=== PATIENT | male | born 1955 | race Caucasian/White ===

== ENCOUNTER 2020-07-03 21:26 | Emergency (ER) | payer MEDICARE ==
[~2020-07-03] VITALS: Ht 160 cm; Wt 62.6 kg
[2020-07-03] MEDS ORDERED: ONDANSETRON HCL INJ 2MG/ML 2ML 2 MG/ML VIAL IV STA (21:35)
[2020-07-03] MEDS ORDERED: KETOROLAC TROMETHAMINE 30 MG/ML VIAL IV STA (21:35)
[2020-07-03] MEDS ORDERED: PANTOPRAZOLE 40 MG 10ML VIAL IV STA (21:35)
[2020-07-03] MEDS ORDERED: SODIUM CHLORIDE 0.9% 1000ML 1,000 ML IV ONE (21:45)
--- NOTE | 2020-07-03 21:57 | Emergency Department Note ---
History of Present Illnes History of Present Illness Chief Complaint: Abdominal Complaints History of Present Illness This is a 64 year old male * 64 Y/O MALE PT AAOX3 PRESENTS TO THE ER VIA EMS FROM HOME C/O N/V ONSET X4 HRS [employer]; REPORTS N/V X1 HR AFTER EATING OYSTERS AND A POBOY SANDWICH; DENIES DIARRHEA OR ABD PAIN; MILD TENDERNESS NOTED TO RUQ ABD ON PALPATION; PT TACHYCARDIC ON ARRIVAL, HR 128 . Arrival Mode: [facility] Staff Nurse Anesthetist Required: No Onset (how long ago): hour(s) (4) Location: ABD Quality: PAIN, NAUSEA,VOMITING Radiation: Reports non-radiation Severity: mild Onset quality: sudden Duration (how long): hour(s) (4) Timing of current episode: constant Progression: unchanged Chronicity: new Context: Denies recent illness, Denies recent surgery Relieving factors: none Exacerbating factors: none Associated symptoms: Reports nausea/vomiting Treatments prior to arrival: none Past Medical/Family History Physician Review I have reviewed the patient's past medical and family history. Any updates have been documented here. Past Medical History Recent Fever: No Clinical Suspicion of Infectio: No New/Unexplained Change in Ment: No Social History Smoking Cessation: Never Smoker Alcohol Use: None Any Illegal Drug Use: No Family History Family history of heart diseas: No Review of Systems Review of Systems Constitutional: Reports no symptoms EENTM: Reports no symptoms Cardiovascular: Reports no symptoms Respiratory: Reports no symptoms Gastrointestinal: Reports as per HPI Genitourinary: Reports no symptoms Musculoskeletal: Reports no symptoms Integumentary: Reports no symptoms Neurological: Reports no symptoms Psychological: Reports no symptoms Endocrine: Reports no symptoms Hematological/Lymphatic: Reports no symptoms Physical Exam Related Data Allergies: Coded Allergies: No Known Allergies (Unverified , 07/03/20) Triage Vital Signs Vital Signs Date Time Temp Pulse Resp B/P (MAP) Pulse Ox O2 Delivery O2 Flow Rate FiO2 07/03/20 21:26 99.4 128 24 124/70 96 Room Air Vital signs reviewed: Yes Physical Exam CONSTITUTIONAL Constitutional: Present well-developed, Present well-nourished; Absent distressed HENT HENT: Present normocephalic, Present atraumatic, Present oropharynx clear/moist, Present nose normal HENT L/R: Present left ext ear normal, Present right ext ear normal EYES Eyes: Reports PERRL, Reports conjunctivae normal NECK Neck: Present ROM normal PULMONARY Pulmonary: Present effort normal, Present breath sounds normal CARDIOVASCULAR Cardiovascular: Present regular rhythm, Present heart sounds normal, Present capillary refill normal, Present tachycardia (128) GASTROINTESTINAL Abdominal: Present soft, Present bowel sounds normal, Present tender (TENDERNESS TO RUQ ON EXAM) GENITOURINARY Genitourinary: Present exam deferred SKIN Skin: Present warm, Present dry MUSCULOSKELETAL Musculoskeletal: Present ROM normal NEUROLOGICAL Neurological: Present alert, Present oriented x 3, Present no gross motor or sensory deficits PSYCHOLOGICAL Psychological: Present mood/affect normal, Present judgement normal Results Laboratory Laboratory Laboratory Tests Test 07/04/20 02:15 07/04/20 00:50 07/03/20 21:45 Urine Color Yellow (YELLOW) Urine Clarity Clear (CLEAR) Urine pH 5 (5 - 7) Urine Specific [place] 1.020 (1.010-1.025) Urine Protein Negative (NEGATIVE) Urine Glucose (UA) Negative (NEGATIVE) Urine Ketones Trace (NEGATIVE) Urine Blood Negative (NEGATIVE) Urine Nitrite Negative (NEGATIVE) Urine Bilirubin Negative (NEGATIVE) Urine Urobilinogen 0.2 mg/dL (0.2 - 1) Urine Leukocyte Esterase Negative (NEGATIVE) Urine RBC 0-5 /HPF (0-5) Urine WBC 6-10 /HPF (0-5) Urine Epithelial Cells Few /LPF (NONE) Urine Bacteria Moderate /HPF (NONE) Urine Mucus Many (RARE) Lactic Acid Level 1.5 mmol/L (0.5-2.0) 2.3 mmol/L (0.5-2.0) White Blood Count 6.60 x10e3/uL (4.8-10.8) Red Blood Count 5.62 x10e6/uL (4.3-5.7) Hemoglobin 15.9 g/dL (14.0-18.0) Hematocrit 48.0 % (38.2-49.6) Mean Corpuscular Volume 85.4 fL (81-99) Mean Corpuscular Hemoglobin 28.3 pg (28-32) Mean Corpuscular Hemoglobin Concent 33.1 g/dL (31-35) Red Cell Distribution Width 14.1 % (11.7-14.4) Platelet Count 193 x10e3/uL (140-360) Neutrophils (%) (Auto) 91.6 % (38.7-80.0) Lymphocytes (%) (Auto) 1.5 % (18.0-39.1) Monocytes (%) (Auto) 6.1 % (4.4-11.3) Eosinophils (%) (Auto) 0.0 % (0.0-6.0) Basophils (%) (Auto) 0.2 % (0.0-1.0) Neutrophils # (Auto) 6.1 (2.1-6.9) Lymphocytes # (Auto) 0.1 (1.0-3.2) Monocytes # (Auto) 0.4 (0.2-0.8) Eosinophils # (Auto) 0.0 (0.0-0.4) Basophils # (Auto) 0.0 (0.0-0.1) Absolute Immature Granulocyte (auto 0.04 x10e3/uL (0-0.1) Sodium Level 141 mmol/L (136-145) Potassium Level 4.2 mmol/L (3.5-5.1) Chloride Level 105 mmol/L (98-107) Carbon Dioxide Level 18 mmol/L (22-29) Anion Gap 22.2 mmol/L (8-16) Blood Urea Nitrogen 15 mg/dL (7-26) Creatinine 0.85 mg/dL (0.72-1.25) Estimat Glomerular Filtration Rate > 60 ML/MIN (60-) BUN/Creatinine Ratio 18 (6-25) Glucose Level 129 mg/dL (74-118) Calcium Level 9.7 mg/dL (8.4-10.2) Total Bilirubin 0.6 mg/dL (0.2-1.2) Aspartate Amino Transf (AST/SGOT) 19 IU/L (5-34) Alanine Aminotransferase (ALT/SGPT) 19 IU/L (0-55) Alkaline Phosphatase 54 IU/L (40-150) Creatine Kinase 34 IU/L (30-200) Creatine Kinase MB 0.80 ng/mL (0-5.0) Troponin I 0.008 ng/mL (0-0.300) Total Protein 7.7 g/dL (6.5-8.1) Albumin 4.7 g/dL (3.5-5.0) Globulin 3.0 g/dL (2.3-3.5) Albumin/Globulin Ratio 1.6 (0.8-2.0) Amylase Level 64 U/L (25-125) Lipase 33 U/L (8-78) Lab results reviewed: Yes Imaging Imaging results reviewed: Yes Impressions Procedure: [id number] US/US GALLBLADDER Exam Date: 07/03/20 Exam Time: 2225 REPORT STATUS: Signed EXAM: Right Upper Quadrant Ultrasound INDICATION: RUQ ABD PAIN COMPARISON: None. TECHNIQUE: Transverse and longitudinal images of the right upper abdomen were obtained. FINDINGS: Liver: Size: 14.9 cm in the right midclavicular line, normal Appearance: Normal echogenicity, smooth contour Mass: No focal masses Gallbladder: Stones/Sludge: No cholelithiasis. Question minimal sludge. Wall: 0.2 cm Appearance: No pericholecystic fluid or hydrops. Sonographic Spears's Sign: Negative Bile Ducts: Intrahepatic Ducts: No dilatation Extrahepatic Ducts: Common bile duct measures 0.4 cm, no dilatation Pancreas: Limited evaluation due to overlying bowel gas and body habitus. Right Kidney: Size: 10.8 cm Echogenicity: Normal Parenchymal thickness: Normal Collecting system: No hydronephrosis Stones: None Cyst/Mass: None Vessels: Aorta: Visualized portions are normal Inferior Vena Cava: Visualized portions are normal Main portal vein: Normal size and flow direction. Free Fluid: No ascites or pleural effusion IMPRESSION: No evidence of acute cholecystitis. Question minimal sludge. No cholelithiasis. Signed by: Shlomo Jeffers MD on 07/03/2020 11:55 PM Dictated By: SHLOMO JEFFERS MD 54 Transcribed By: NANCY on 07/03/201 COPY TO: ALBERT MART MD~ rocedure: [id number] CT/CT ABDOMEN/PELVIS W Exam Date: Exam Time: REPORT STATUS: Signed EXAM: CT Abdomen and Pelvis WITH contrast INDICATION: ABD PAIN COMPARISON: None TECHNIQUE: Abdomen and pelvis were scanned utilizing a multidetector helical scanner from the lung base to the pubic symphysis after administration of IV contrast. Coronal and sagittal reformations were obtained. Routine protocol was performed. Scan was performed when during portal venous phase. IV CONTRAST: 100 mL of Isovue 370 ORAL CONTRAST: None COMPLICATIONS: None RADIATION DOSE: Total DLP: 263.96. mGy*cm Estimated effective dose: (DLP x 0.015 x size factor) mSv CTDIvol has been reviewed. It is below the limits set by the Radiation Protocol Committee (RPC). Dose modulation, iterative reconstruction, and/or weight based adjustment of the mA/kV was utilized to reduce the radiation dose to as low as reasonably achievable. FINDINGS: LINES and TUBES: None. LOWER THORAX: Mild dependent atelectasis. Mildly enlarged heart. HEPATOBILIARY: Nonspecific periportal edema. No focal hepatic lesions. No extrahepatic biliary dilatation. GALLBLADDER: No radio-opaque stones or sludge. No wall thickening. Distended. No inflammatory changes. SPLEEN: No splenomegaly. PANCREAS: No focal masses or ductal dilatation. ADRENALS: No adrenal nodules KIDNEYS/URETERS: Kidneys enhance symmetrically. No hydronephrosis. No cystic or solid mass lesions. No stones. GI TRACT: The colon is predominantly within the right hemiabdomen. The small bowel is predominantly within the left hemiabdomen. The SMV is to the left of the SMA. Findings likely represent congenital malrotation. No evidence of obstruction. PELVIC ORGANS/BLADDER: Urinary bladder is partially distended. There is mild bladder wall thickening measuring up to 5 mm. LYMPH NODES: No lymphadenopathy. VESSELS: Unremarkable. PERITONEUM / RETROPERITONEUM: No free air or fluid. BONES: Chronic appearing deformity of the left iliac bone, likely old trauma. Kyphosis of the thoracolumbar spine centered at T12. Degenerative changes of the lumbar spine. SOFT TISSUES: Fat-containing right inguinal hernia. Small left inguinal fat-containing hernia. IMPRESSION: 1. 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 No evidence of obstruction. There are various swirls in the mesentery, but given lack of bowel dilatation, this is likely anatomic. However, if abdominal pain persists, consider short-term repeat imaging. 2. Mild nonspecific periportal edema. This could relate to volume status, but can also represent hepatic inflammatory process. No extrahepatic biliary dilatation. 3. Urinary bladder wall is circumferentially thickened. Correlate with urinalysis to exclude cystitis. Signed by: Shlomo Jeffers MD on 07/04/2020 2:17 AM Dictated By: SHLOMO JEFFERS MD [id number] Transcribed By: NANCY on 07/04/20216 COPY TO: ALBERT MART MD~ Procedures 12 Lead ECG Interpretation ECG Interpretation : ECG: ECG 1 Staff Nurse Anesthetist: Interpreted by ED physician Date: Jul 03, 2020 Time: 21:42 Rhythm: sinus tachycardia Ectopy: PVC's Rate: tachycardia BPM: 128 QRS axis: right Conduction: incomplete RBBB ST segments normal: Yes T waves normal: No T wave inversion: V1, V2 Other findings: no other findings Clinical Impression: abnormal ECG Additional Comments rhythm is accelerated junctional Assessment & Plan Medical Decision Making MDM PT WITH RUQ PAIN WITH N/V CBC, CMP, EKG, GALLBLADDER US, LACTIC ACID, UA, AMYLASE, LIPASE ORDERED TO EVAL FOR LEUKOCYTOSIS, SEPSIS, UTI, PANCREATITIS, ELEVATED LFT'S, GALLSTONES, CHOLECYSTITIS, ELECTROLYTE ABNORMALITY, 1 LITER NS IV BOLUS ORDERED ZOFRAN 4 MG IV ORDERED 2220 LACTIC ACID 2.3, BLOOD CULTURES ORDERED, ZOSYN 3.375 GRAMS IV ORDERED Reassessment Reassessment time: 03:22 Reassessment pt states he feels good and wants to go home, i spoke with his cousin jose and he will come pick pt up Assessment & Plan Final Impression: (1) UTI (urinary tract infection) (2) Vomiting Depart Disposition: HOME, SELF-CARE Last Vital Signs Date Time Temp Pulse Resp B/P (MAP) Pulse Ox O2 Delivery O2 Flow Rate FiO2 07/03/20 21:26 99.4 128 24 124/70 96 Room Air Medications in the ED Ketorolac Tromethamine 30 mg ONCE STAT IV ; Start 07/03/20 at 21:35; Stop 07/03/20 at 21:36; Status UNV Pantoprazole Sodium 40 mg NOW STAT IV ; Start 07/03/20 at 21:35; Stop 07/03/20 at 21:36; Status UNV Ondansetron HCl 4 mg NOW STAT IV ; Start 07/03/20 at 21:35; Stop 07/03/20 at 21:36; Status UNV Sodium Chloride 1,000 ml @ 999 mls/hr Q1H1M ONCE IV ; Start 07/03/20 at 21:45; Stop 07/03/20 at 22:45 ALBERT MART MD Jul 03, 2020 21:56
[2020-07-03 22:03] LABS: BASOPHILS % 0.2 % (0.0-1.0); HEMOGLOBIN 15.9 g/dL (14.0-18.0); LYMPHOCYTES # (AUTO) 0.1 (1.0-3.2); LYMPHOCYTES % 1.5 % (18.0-39.1); MEAN CORPUSCULAR HEMOGLOBIN 28.3 pg (28-32); MEAN CORPUSCULAR HGB CONC 33.1 g/dL (31-35); MEAN CORPUSCULAR VOLUME 85.4 fL (81-99); MONOCYTES # (AUTO) 0.4 (0.2-0.8); MONOCYTES % 6.1 % (4.4-11.3); NEUTROPHILS # (AUTO) 6.1 (2.1-6.9); NEUTROPHILS % 91.6 % (38.7-80.0); PLATELET COUNT 193 x10e3/uL (140-360); RED BLOOD COUNT 5.62 x10e6/uL (4.3-5.7); RED CELL DISTRIBUTION WIDTH 14.1 % (11.7-14.4)
[2020-07-03 22:18] LABS: ALANINE AMINOTRANSFERASE 19 IU/L (0-55); ALBUMIN 4.7 g/dL (3.5-5.0); ALBUMIN/GLOBULIN RATIO 1.6 (0.8-2.0); ALKALINE PHOSPHATASE 54 IU/L (40-150); ANION GAP 22.2 mmol/L (8-16); BLOOD UREA NITROGEN 15 mg/dL (7-26); BUN/CREATININE RATIO 18 (6-25); CALCIUM 9.7 mg/dL (8.4-10.2); CARBON DIOXIDE 18 mmol/L (22-29); CHLORIDE 105 mmol/L (98-107); CREATINE KINASE 34 IU/L (30-200); CREATININE, SERUM 0.85 mg/dL (0.72-1.25); EST GLOMERULAR FILTRATION RATE > 60 ML/MIN (60-); GLUCOSE 129 mg/dL (74-118); POTASSIUM 4.2 mmol/L (3.5-5.1); SODIUM 141 mmol/L (136-145)
[2020-07-03 22:19] LABS: AMYLASE 64 U/L (25-125); LIPASE 33 U/L (8-78)
[2020-07-03] MEDS ORDERED: PIPER-TAZ 3.375 GM 50 ML IV ONE (22:30)
--- NOTE | 2020-07-03 23:59 | Diagnostic Imaging Report ---
EXAM: Right Upper Quadrant Ultrasound INDICATION: RUQ ABD PAIN COMPARISON: None. TECHNIQUE: Transverse and longitudinal images of the right upper abdomen were obtained. FINDINGS: Liver: Size: 14.9 cm in the right midclavicular line, normal Appearance: Normal echogenicity, smooth contour Mass: No focal masses Gallbladder: Stones/Sludge: No cholelithiasis. Question minimal sludge. Wall: 0.2 cm Appearance: No pericholecystic fluid or hydrops. Sonographic Spears's Sign: Negative Bile Ducts: Intrahepatic Ducts: No dilatation Extrahepatic Ducts: Common bile duct measures 0.4 cm, no dilatation Pancreas: Limited evaluation due to overlying bowel gas and body habitus. Right Kidney: Size: 10.8 cm Echogenicity: Normal Parenchymal thickness: Normal Collecting system: No hydronephrosis Stones: None Cyst/Mass: None Vessels: Aorta: Visualized portions are normal Inferior Vena Cava: Visualized portions are normal Main portal vein: Normal size and flow direction. Free Fluid: No ascites or pleural effusion IMPRESSION: No evidence of acute cholecystitis. Question minimal sludge. No cholelithiasis. Signed by: Bassem Wilkes MD on 07/03/2020 11:55 PM
[2020-07-04] MEDS ORDERED: DIGOXIN INJ 0.25 MG/ML 2 ML AMP IV ONE ×2 (00:30→00:45)
[2020-07-04] MEDS ORDERED: SODIUM CHLORIDE 0.9% 1000ML 1,000 ML IV SCH (00:45)
[2020-07-04] MEDS ORDERED: SODIUM CHLORIDE 0.9% 1000ML 1,000 ML IV ONE (01:00)
--- NOTE | 2020-07-04 02:21 | Diagnostic Imaging Report ---
EXAM: CT Abdomen and Pelvis WITH contrast INDICATION: ABD PAIN COMPARISON: None TECHNIQUE: Abdomen and pelvis were scanned utilizing a multidetector helical scanner from the lung base to the pubic symphysis after administration of IV contrast. Coronal and sagittal reformations were obtained. Routine protocol was performed. Scan was performed when during portal venous phase. IV CONTRAST: 100 mL of Isovue 370 ORAL CONTRAST: None COMPLICATIONS: None RADIATION DOSE: Total DLP: 263.96. mGy*cm Estimated effective dose: (DLP x 0.015 x size factor) mSv CTDIvol has been reviewed. It is below the limits set by the Radiation Protocol Committee (RPC). Dose modulation, iterative reconstruction, and/or weight based adjustment of the mA/kV was utilized to reduce the radiation dose to as low as reasonably achievable. FINDINGS: LINES and TUBES: None. LOWER THORAX: Mild dependent atelectasis. Mildly enlarged heart. HEPATOBILIARY: Nonspecific periportal edema. No focal hepatic lesions. No extrahepatic biliary dilatation. GALLBLADDER: No radio-opaque stones or sludge. No wall thickening. Distended. No inflammatory changes. SPLEEN: No splenomegaly. PANCREAS: No focal masses or ductal dilatation. ADRENALS: No adrenal nodules KIDNEYS/URETERS: Kidneys enhance symmetrically. No hydronephrosis. No cystic or solid mass lesions. No stones. GI TRACT: The colon is predominantly within the right hemiabdomen. The small bowel is predominantly within the left hemiabdomen. The SMV is to the left of the SMA. Findings likely represent congenital malrotation. No evidence of obstruction. PELVIC ORGANS/BLADDER: Urinary bladder is partially distended. There is mild bladder wall thickening measuring up to 5 mm. LYMPH NODES: No lymphadenopathy. VESSELS: Unremarkable. PERITONEUM / RETROPERITONEUM: No free air or fluid. BONES: Chronic appearing deformity of the left iliac bone, likely old trauma. Kyphosis of the thoracolumbar spine centered at T12. Degenerative changes of the lumbar spine. SOFT TISSUES: Fat-containing right inguinal hernia. Small left inguinal fat-containing hernia. IMPRESSION: 1. 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 No evidence of obstruction. There are various swirls in the mesentery, but given lack of bowel dilatation, this is likely anatomic. However, if abdominal pain persists, consider short-term repeat imaging. 2. Mild nonspecific periportal edema. This could relate to volume status, but can also represent hepatic inflammatory process. No extrahepatic biliary dilatation. 3. Urinary bladder wall is circumferentially thickened. Correlate with urinalysis to exclude cystitis. Signed by: Bassem Wilkes MD on 07/04/2020 2:17 AM
[2020-07-04] MEDS ORDERED: SODIUM CHLORIDE 0.9% 50ML 50 ML ONE (02:25)
[2020-07-04] MEDS ORDERED: IOPAMIDOL 370 MG/ML 200 ML INFUS..BTL INJ ONE (02:25)
[2020-07-04 02:40] LABS: BILIRUBIN,URINE NEGATIVE (NEGATIVE); CLARITY,URINE CLEAR (CLEAR); COLOR,URINE YELLOW (YELLOW); KETONES,URINE TRACE (NEGATIVE); LEUKOCYTE ESTERASE ,URINE NEGATIVE (NEGATIVE); NITRITE,URINE NEGATIVE (NEGATIVE); PROTEIN,URINE DIPSTICK NEGATIVE (NEGATIVE); URINE UROBILINOGEN 0.2 mg/dL (0.2 - 1)
[2020-07-04 03:09] LABS: BACTERIA,URINE MODERATE /HPF; EPITHELIAL CELLS,URINE FEW /LPF; MUCUS,URINE MANY (RARE); RBC,URINE 0-5 /HPF (0-5)
[2020-07-04] MEDS ORDERED: CEFTRIAXONE SOD 1 GM/NS 50 ML 50 ML IV ONE (03:15)
--- NOTE | 2020-07-04 03:30 | NUR ---
DR. MART SPOKE TO PATIENT'S COUSIN, MJ, AND INFORMED HIM THAT HE WOULD BE READY TO BE DISCHARGED AT 0430. PATIENT'S COUSIN STATED THAT HE WOULD COME AND PICK THE PATIENT UP AND THAT THE PATIENT WAS ABLE TO SIGN DISCHARGE DOCUMENTS HIMSELF, HE DOES NOT HAVE ANY MEDICAL POA.
--- NOTE | 2020-07-04 05:02 | NUR ---
PT CALLED COUSIN AND SAID THAT HE WAS READY TO GO HOME. PT SAID THAT HIS COUSIN, MJ, WAS ON HIS WAY TO GET HIM.
--- NOTE | 2020-07-04 06:36 | NUR ---
RN CALLED MARKIESINMJ, AND INFORMED HIM THAT THE PATIENT NEEDED TO BE PICKED UP AND HAD BEEN READY FOR DISCHARGE FOR 2 HOURS NOW. MJ STATED THAT "HE DID NOT KNOW THE PATIENT HAD BEEN READY FOR DISCHARGE" AND WOULD BE ON HIS WAY TO PICK HIM UP.
== END 2020-07-04 07:10 | disposition home or self-care (01) ==
LOC: ER 21:37
DX: N39.0 Urinary tract infection, site not specified (principal); R10.11 Right upper quadrant pain; R11.2 Nausea with vomiting, unspecified
CPT/HCPCS: 36415; 74177; 76705; 80053; 81001; 82150; 82550; 82553; 83605; 83690; 84484; 85025; 93005 ×2; 96374; 96375; 96376; 99284; C9113; J0696; J1160; J1885; J2405; J2543; J7030 ×2; Q9967